=== PATIENT | male | born 1930 | race Caucasian/White ===

== ENCOUNTER 2016-06-21 09:41 | Day surgery (SDC) | payer MEDICARE ==
[2016-06-20 08:10] VITALS: BMI 21.2
[~2016-06-21 09:41] MED LIST: DEXAMETHASONE SOD PHOSPHATE 10 MG/ML 1 ML VIAL IV ONE; HYDROmorphone 1 MG/ML 1 ML SYRINGE IVP PRN; LACTATED RINGERS 1,000 ML IV SCH; MIDAZOLAM 2 MG/2 ML VIAL IV PRN; ONDANSETRON 4 MG/2 ML VIAL IVP ONE; SCOPOLAMINE 1.5MG/72HR PATCH TRANSDERM ONE; ceFAZolin 1,000 MG in DEXTROSE/WATER 1 50ML.BAG IV ONE
[2016-06-21 10:21] VITALS: RESP 16; TEMP 97.9
[2016-06-21 10:57] LABS: Anion Gap 3 mmol/L; Blood Urea Nitrogen 16 mg/dL (9-20); Calcium 9.2 mg/dL (8.4-10.2); Carbon Dioxide 28 mmol/L (22-30); Chloride 108 mmol/L (98-107); Glucose 98 mg/dL (74-99); Non-African American GFR(MDRD) >60 (>60 ml/min/1.73 sqM); Potassium 4.5 mmol/L (3.5-5.1); Sodium 139 mmol/L (137-145)
[2016-06-21] MEDS ORDERED: LIDOCAINE 1% 20 ML VIAL (10MG/ML) FOR IV START INTRADERMA ONE (10:59)
[2016-06-21 11:04] LABS: Anisocytosis Slight; Basophils % (A) 1 %; CH 35.7; CHCM 31.8; Eosinophils % (A) 1 %; HCT 25.8 % (39.0-53.0); HDW 4.05; HGB 8.2 gm/dL (13.0-17.5); Hypochromasia Moderate; Luc # (Auto) 0.15; Luc % (Auto) 5; Lymphocytes # (A) 0.6 k/uL (1.0-4.8); Lymphocytes % (A) 19 %; MCH 35.7 pg (25.0-35.0); MCHC 31.8 g/dL (31.0-37.0); MCV 112.3 fL (80.0-100.0); Macrocytosis Marked; Mean Platelet Volume 7.6; Monocytes # (A) 0.3 k/uL (0-1.0); Monocytes % (A) 8 %; Neutrophils # (A) 2.3 k/uL (1.3-7.7); Neutrophils % (A) 68 %; Poikilocytosis Moderate; RDW 19.2 % (11.5-15.5); WBC 3.4 k/uL (3.8-10.6); WBC (Perox) 3.28
[2016-06-21] MEDS ORDERED: BUPIVACAINE (PF) 0.5% 30 ML VIAL SQ ONE (11:16)
[2016-06-21] MEDS ORDERED: LIDOCAINE 1% (PF) 10MG/ML VIAL SQ ONE (11:16)
[2016-06-21] MEDS ORDERED: fentaNYL (PF) 50 MCG/ML 2 ML AMP ONE (11:27)
[2016-06-21] MEDS ORDERED: MIDAZOLAM 2 MG/2 ML VIAL ONE (11:27)
[2016-06-21] MEDS ORDERED: PROPOFOL 10 MG/ML 20 ML VIAL IV ONE (11:27)
[2016-06-21 11:34] LABS: Manual Review Performed; Polychromasia Present
--- NOTE | 2016-06-21 13:55 | XR ---
EXAMINATION TYPE: XR chest 1V portable DATE OF EXAM: 06/21/2016 1:39 PM COMPARISON: Chest x-ray January 03, 2016. HISTORY: Post pleural drainage catheter placement. TECHNIQUE: Single AP portable frontal upright view of the chest is obtained. FINDINGS: There is right medial chest tube. Persistent moderate-sized right-sided hydropneumothorax estimated 40%. There is right basilar atelectasis and/or infiltrate. There is patchy left basilar tadeo ear atelectasis. No mediastinal shift is seen. Cardiac silhouette size is within normal limits with a therosclerotic and slightly ectatic thoracic aorta. Osseous structures are demineralized. Slight S-sh aped scoliosis with multilevel spurring and spine is present. IMPRESSION: Fairly moderate size right hydropneumothorax despite chest tube placement. Associated ri ght basilar atelectasis and/or infiltrate is noted. No mediastinal shift is seen.
[2016-06-21 14:08] VITALS: BP 105/72; PULSE 75
[2016-06-21] MEDS ORDERED: ACETAMINOPHEN TAB 325 MG TAB PO STA (15:29)
--- NOTE | 2016-06-21 23:15 | PCN ---
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 OPERATION: Placement of right PleurX catheter with fluoroscopic guidance. SURGEON: ELIZABETH SPEARS MD ANESTHESIA: Local with IV sedation. 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 He was treated by Dr. Mota with a PleurX catheter, but this was removed in November. Since that time, he has had 3 thoracenteses for symptomatic recurrent pleural effusion on the right side. The most recent one was done a week ago and over 3 L of fluid was drained from the chest. The chest x-ray following the drainage demonstrated only partial re-expansion of the lung with approximately 80% residual pneumothorax, but with resolution of the previously-noted right to left shift in the mediastinum. I saw the patient in consultation and discussed with the patient that his lung is trapped secondary to the malignant effusion malignant involvement of the pleural space of the right lung, but that the recurrent effusion, when it occurs, causes further collapse of the right lung and mediastinal shift, causing partial collapse of the left lung. The patient has some degree of dyspnea with exertion at baseline, but when the effusion builds up, he becomes extremely short of breath. replacement of the right PleurX catheter seemed the best treatment for palliative symptomatic relief of the shortness of breath related to the pleural effusion, particularly when it builds back up. surgery was scheduled as an outpatient. OPERATIVE PROCEDURE: Patient was brought to the operating room and place supine on the table. The right chest and upper abdomen were sterilely prepped and draped. 1% lidocaine was used for anesthesia and IV sedation was given. Right pleural space was entered ( ) needle in the 7th interspace in the anterior axillary line and air was immediately encountered. A larger needle was placed here and then a guidewire was placed into the chest under fluoroscopic guidance. We then enlarged the incision at the site of the guidewire exit and made a counter incision in the right upper quadrant for exit of the PleurX catheter. The PleurX catheter was tunneled from the exit site to the wire site with the cuff situated just under the skin at the exit site. Introducer and dilator were placed into the chest over the wire under fluoroscopic guidance. Wire and dilator were removed and through the introducer sheath, the PleurX catheter was placed into the right pleural space. Introducer sheath was then removed and the PleurX catheter was connected to suction. Serosanguineous fluid and a large amount of air were aspirated. The entry site increased was closed 2 layers of 4-0 Vicryl and a closed dressing was applied followed by a Band-Aid. The catheter was secured at the exit site with a 2-0 silk suture ligature. The catheter was then capped and placed in a standard PleurX dressing and the patient was moved from the operating room to the recovery area. Fluoroscopy demonstrated good placement of catheter with decrease in the amount of pneumothorax present on the right side. The patient tolerated the procedure well.
--- NOTE | 2016-06-24 09:02 | FL ---
FLUOROSCOPY 2 seconds of fluoroscopy time were utilized during chest tube insertion. 1 images document the proced ure.
== END 2016-06-21 15:39 | disposition hospice, home (50) ==
LOC: OR 09:41
PROVIDERS: ATTEND Thoracic Surgery (Cardiothoracic Vascular Surgery)
DX: J91.0 Malignant pleural effusion (principal); C34.90 Malignant neoplasm of unspecified part of unspecified bronchus or lung; Z79.01 Long term (current) use of anticoagulants; Z88.8 Allergy status to other drugs, medicaments and biological substances
CPT/HCPCS: 75989; 32551; 80048; 85025; 71010; A7048; J2250; J2405; J3010; J0690; J2001; J2704